=== PATIENT | male | born 1945 | race Caucasian/White ===

== ENCOUNTER 2020-04-23 10:25 | Day surgery (SDC) | payer MEDICARE, SELFPAY ==
--- NOTE | 2020-04-21 12:42 | HO.ANESPROP2 ---
Documented by User: Kellie Dozier 04/21/20 12:45 [facility] Past Medical History Medical History (Updated 04/21/20 @ 12:44 by Kellie Dozier) Atrial fibrillation Diabetes HTN (hypertension) Hyperlipemia Surgical History Surgical History (Updated 04/19/20 @ 15:03 by Lois Aburto) Hx of cholecystectomy Hx of colonoscopy Social History Social History Advance Directives: No Advance Directives Information Provided: No Advance Directives on File: No Meds Allergies Allergy/AdvReac Type Severity Reaction Status Date / Time No Known Allergies Allergy Unverified 04/08/20 14:55 Home Medications Medication Instructions Recorded Confirmed Type Osteo Bi-Flex 04/19/20 History apixaban [Eliquis] 5 mg PO BID 04/19/20 04/23/20 History aspirin 81 mg PO DAILY 04/19/20 04/19/20 History flaxseed oil 1,000 mg PO DAILY 04/19/20 04/19/20 History gemfibrozil 600 mg PO BID 04/19/20 04/19/20 History glipizide 5 mg PO DAILY 04/19/20 04/19/20 History hydrochlorothiazide 1 cap PO DAILY 04/19/20 04/19/20 History latanoprost [Xalatan] 1 drp OPHTHALMIC (EYE) QPM 04/19/20 04/19/20 History metoprolol tartrate 1 tab PO BID 04/19/20 04/23/20 History multivitamin 1 tab PO DAILY 04/19/20 04/19/20 History omeprazole 40 mg PO DAILY 04/19/20 04/19/20 History Exam Exam Date and Time: April 21, 2020 1242 Assessment and Plan Assessment Anesthesia Assessment: Chart Reviewed (04/21/20 ) Documented by User: Ta Cline CRNA 04/23/20 11:07 [facility] Past Medical History Medical History (Updated 04/21/20 @ 12:44 by Kellie Dozier) Atrial fibrillation Diabetes HTN (hypertension) Hyperlipemia Surgical History Surgical History (Updated 04/19/20 @ 15:03 by Lois Aburto) Hx of cholecystectomy Hx of colonoscopy Social History Social History Advance Directives: No Advance Directives Information Provided: No Advance Directives on File: No Meds Allergies Allergy/AdvReac Type Severity Reaction Status Date / Time No Known Allergies Allergy Unverified 04/08/20 14:55 Home Medications Medication Instructions Recorded Confirmed Type Osteo Bi-Flex 04/19/20 History apixaban [Eliquis] 5 mg PO BID 04/19/20 04/23/20 History aspirin 81 mg PO DAILY 04/19/20 04/19/20 History flaxseed oil 1,000 mg PO DAILY 04/19/20 04/19/20 History gemfibrozil 600 mg PO BID 04/19/20 04/19/20 History glipizide 5 mg PO DAILY 04/19/20 04/19/20 History hydrochlorothiazide 1 cap PO DAILY 04/19/20 04/19/20 History latanoprost [Xalatan] 1 drp OPHTHALMIC (EYE) QPM 04/19/20 04/19/20 History metoprolol tartrate 1 tab PO BID 04/19/20 04/23/20 History multivitamin 1 tab PO DAILY 04/19/20 04/19/20 History omeprazole 40 mg PO DAILY 04/19/20 04/19/20 History Assessment and Plan Final Anesthetic Review NPO: Yes ASA Class: III Anesthetic Plan Anesthetic Plan: MAC: Documented by User: Vi Delong 04/23/20 11:21 [facility] Past Medical History Medical History (Updated 04/21/20 @ 12:44 by Kellie Dozier) Atrial fibrillation Diabetes HTN (hypertension) Hyperlipemia Family History Family history of problems with anesthesia: No Surgical History Surgical History (Updated 04/19/20 @ 15:03 by Lois Aburto) Hx of cholecystectomy Hx of colonoscopy History of Problems with Anesthesia: No Social History Social History Advance Directives: No Advance Directives Information Provided: No Advance Directives on File: No Meds Allergies Allergy/AdvReac Type Severity Reaction Status Date / Time No Known Allergies Allergy Unverified 04/08/20 14:55 Home Medications Medication Instructions Recorded Confirmed Type Osteo Bi-Flex 04/19/20 History apixaban [Eliquis] 5 mg PO BID 04/19/20 04/23/20 History aspirin 81 mg PO DAILY 04/19/20 04/19/20 History flaxseed oil 1,000 mg PO DAILY 04/19/20 04/19/20 History gemfibrozil 600 mg PO BID 04/19/20 04/19/20 History glipizide 5 mg PO DAILY 04/19/20 04/19/20 History hydrochlorothiazide 1 cap PO DAILY 04/19/20 04/19/20 History latanoprost [Xalatan] 1 drp OPHTHALMIC (EYE) QPM 04/19/20 04/19/20 History metoprolol tartrate 1 tab PO BID 04/19/20 04/23/20 History multivitamin 1 tab PO DAILY 04/19/20 04/19/20 History omeprazole 40 mg PO DAILY 04/19/20 04/19/20 History Exam Exam Date and Time: Vital Signs Temp Pulse Resp BP Pulse Ox 04/23/20 10:44 98 F 108 H 18 135/94 H 97 Airway Mallampati Class: II TM Dist: >3cm Neck ROM: Full Partial: Upper Heart: RRR Lungs: CTAB Assessment and Plan Assessment Anesthesia Assessment: Anesthesia Plan Discussed, Consent Obtained and Chart Reviewed Final Anesthetic Review NPO: Yes Intake Type: Clears Intake Timing: Greater than 8 hours and Solids Intake Timing: Greater than 8 hours ASA Class: III Final Preanesthetic Review: No Changes in Pt Med Stat, Meds & Allergies Reviewed, Consent Obtained/Reviewed, Med/Surg/Anes Hx Reviewed and Anes Risks/Benef Reviewed Patient Risk: Intermediate Procedure Risk: Low Anesthetic Plan Anesthetic Plan: MAC: Disposition: Standard PACU
[2020-04-23 10:32] VITALS: BMI 31.0
[2020-04-23 10:44] VITALS: BP 135/94; PULSE 108; RESP 18; TEMP 36.6; O2SAT 97
[2020-04-23 10:52] LABS: Glucose, Whole Blood 214 mg/dL (60-115)
[2020-04-23] MEDS: Lactated Ringers 1,000 ML 100 ML IVCONT (11:12)
[2020-04-23 12:00] VITALS: BP 99/72; PULSE 89; RESP 16; TEMP 36.8; O2SAT 98
[2020-04-23 12:14] VITALS: BP 105/76; PULSE 98; RESP 18; TEMP 36.6; O2SAT 96
--- NOTE | 2020-04-23 12:43 | HO.POSTANES ---
Post Anesthesia Evaluation Post Anesthesia Evaluation Vital Signs: Vital Signs Temp Pulse Resp BP Pulse Ox 04/23/20 12:14 98 F 98 18 105/76 96 04/23/20 12:00 98.3 F 89 16 99/72 98 04/23/20 10:44 98 F 108 H 18 135/94 H 97 Anesthesia: Monitored Mental Status: Awake Pain Control: Satisfactory Nausea/Vomiting: None Hydration: Adequate Anesthesia-Related Issues: No Anes. Related Issues
--- NOTE | 2020-04-23 12:49 | OP_ITS ---
SURGEON: Mesfin Castro MD INDICATIONS: Colon cancer screening. PREOPERATIVE DIAGNOSIS: POSTOPERATIVE DIAGNOSIS: PROCEDURE PERFORMED: Colonoscopy to the terminal ileum with snare polypectomy. ESTIMATED BLOOD LOSS: COMPLICATIONS: ANESTHESIA: Monitored anesthesia care. ASSISTANTS: SPECIMENS: DESCRIPTION OF PROCEDURE: History and physical performed. The risks and benefits of the procedure explained to the patient and informed consent was obtained. The patient was placed in left lateral decubitus position. A digital rectal exam was performed and was found to be normal. The Olympus pediatric video colonoscope was introduced into the rectum and advanced to the cecum without difficulty. The cecum was identified by transillumination, palpation, and identification of ileocecal valve. Examination was performed. The scope was removed. He tolerated the procedure well and was taken to the recovery in stable condition. FINDINGS: The terminal ileum was examined and appeared normal. The visualized colonic mucosa was normal. The quality of the prep was good except in the rectum where there was formed stool. This limited the sensitivity examination for detection of small polyps. There were multiple polyps found, all were under 10 mm and removed with a snare. The 1st was located at 80, two were located at 70, three at 60, and one at 50 cm from the anal verge. Retroflexed examination showed internal hemorrhoids. There was moderate sigmoid diverticulosis. IMPRESSION: Colon polyps. RECOMMENDATION: Follow up biopsy results. MD ZULLY Colunga/PACO / [id number]
--- NOTE | 2020-04-23 13:31 | HO.POSTANES ---
Documented by User: Kellie Dozier 04/23/20 13:31 Post Anesthesia Evaluation Post Anesthesia Evaluation Vital Signs: Vital Signs Temp Pulse Resp BP Pulse Ox 04/23/20 12:14 98 F 98 18 105/76 96 04/23/20 12:00 98.3 F 89 16 99/72 98 04/23/20 10:44 98 F 108 H 18 135/94 H 97 Anesthesia: Monitored Mental Status: Awake Pain Control: Satisfactory Nausea/Vomiting: None Hydration: Adequate Anesthesia-Related Issues: No Anes. Related Issues
== END 2020-04-23 13:15 | disposition home or self-care (01) ==
PROVIDERS: PCP Internal Medicine; Visit Provider Internal Medicine Gastroenterology
PROC: 0DJD8ZZ Inspection of Lower Intestinal Tract, Via Natural or Artificial Opening Endoscopic (ICD-10-PCS; CPT 45378; principal; 2020-04-23 11:30)
DX: Z12.11 Encounter for screening for malignant neoplasm of colon (principal); D12.4 Benign neoplasm of descending colon; D12.5 Benign neoplasm of sigmoid colon; Z90.49 Acquired absence of other specified parts of digestive tract; I48.91 Unspecified atrial fibrillation; Z79.01 Long term (current) use of anticoagulants; I10 Essential (primary) hypertension; E78.5 Hyperlipidemia, unspecified; E11.9 Type 2 diabetes mellitus without complications; Z79.82 Long term (current) use of aspirin; Z79.84 Long term (current) use of oral hypoglycemic drugs
CPT/HCPCS: 45385; 82947; 88305

== ENCOUNTER 2020-06-14 10:12 | Outpatient (REF) | payer MEDICARE, SELFPAY ==
[2020-06-14 14:06] LABS: Estimated Average Glucose 206 mg/dL; Hemoglobin A1c % 8.8 %
[2020-06-14 14:10] LABS: Anion Gap 15 (12-20); Blood Urea Nitrogen 23 mg/dL (9-16); Calcium 9.6 mg/dL (8.4-10.2); Carbon Dioxide 26 mmol/L (22-29); Chloride 102 mmol/L (96-108); Estimated Glomerular Filt Rate > 60; Glucose Random 186 mg/dL (60-115); Sodium 138 mmol/L (135-145)
== END 2020-06-14 10:13 | disposition home or self-care (01) ==
LOC: HO.10HDL 10:12
PROVIDERS: Visit Provider Internal Medicine
DX: E11.9 Type 2 diabetes mellitus without complications (principal); I10 Essential (primary) hypertension
CPT/HCPCS: 80048; 83036

== ENCOUNTER 2020-12-08 07:39 | Outpatient (REF) | payer MEDICARE, SELFPAY ==
[2020-12-08 11:34] LABS: Creatinine Urine 99.04 mg/dL; Microalbum/Creatinine Ratio Ur 39.3 ug/mg cr
[2020-12-08 11:44] LABS: Alanine Aminotransferase 29 U/L (0-40); Albumin Level 4.4 g/dL (3.5-5.0); Alkaline Phosphatase 61 U/L (39-117); Anion Gap 16 (12-20); Aspartate Amino Transferase 23 U/L (5-37); Bilirubin Total 0.9 mg/dL (0.0-1.0); Blood Urea Nitrogen 22 mg/dL (9-16); Calcium 9.8 mg/dL (8.4-10.2); Carbon Dioxide 26 mmol/L (22-29); Chloride 101 mmol/L (96-108); Estimated Glomerular Filt Rate > 60; Glucose Random 191 mg/dL (60-115); Potassium 4.8 mmol/L (3.3-5.1); Sodium 138 mmol/L (135-145); Total Protein 6.7 g/dL (6.5-8.0)
[2020-12-08 11:45] LABS: Estimated Average Glucose 209 mg/dL; Hemoglobin A1c % 8.9 %
[2020-12-08 12:24] LABS: Prostate Specific Antigen 1.91 ng/mL (<0.05-4.0)
== END 2020-12-08 07:40 | disposition home or self-care (01) ==
LOC: HO.10HDL 07:39
PROVIDERS: Visit Provider Internal Medicine
DX: E11.9 Type 2 diabetes mellitus without complications (principal); I48.91 Unspecified atrial fibrillation; I10 Essential (primary) hypertension; Z12.5 Encounter for screening for malignant neoplasm of prostate
CPT/HCPCS: 36415; 80053; 82043; 83036; 84153

== ENCOUNTER → 2021-01-05 08:43 | Outpatient (BNVA) | payer MEDICARE, SELFPAY | PROVIDERS: PCP Internal Medicine; Referring Provider Internal Medicine; Visit Provider Internal Medicine Cardiovascular Disease | DX: I48.20 Chronic atrial fibrillation, unspecified (principal); I10 Essential (primary) hypertension | CPT/HCPCS: 93005; 99202 ==

== ENCOUNTER → 2021-01-25 12:57 | Outpatient (REF) | payer MEDICARE, SELFPAY ==
--- NOTE | 2021-01-25 13:00 | CA_ITS ---
Transthoracic Echocardiogram Patient (Last, First, Middle): Richy Vasquez C Gender: Male Date of : 1945 Age: 75 Procedure Date: 01/25/2021 Procedure Type: Transthoracic Echocardiogram Location: OP Height: 172.72 cm Weight: 95.26 kg BSA: 2.09 m2 Heart Rate: bpm BP: 132 / 80 mmHg Head Of Sales And Marketing: Referring MD: Kraig Newsome MD Symptoms: I48.20 - Chronic atrial fibrillation, unspecified Study Quality: Fair ECG Rhythm: Atrial Fibrillation Conclusions: - The left ventricular systolic function is normal. The visually estimated ejection fraction is between 55-60%. - The basal inferior and basal inferolateral segments are hypokinetic. - No obvious valvular pathology seen on this study. Findings Left Ventricle Normal left ventricular cavity size. There is mildly increased left ventricular wall thickness. The left ventricular systolic function is normal. The visually estimated ejection fraction is between 55-60%. There is evidence of regional wall motion abnormalities. Diastolic function is indeterminate on the basis of available data. Wall Motion Rest Echo Findings The basal inferior and basal inferolateral segments are hypokinetic. Right Ventricle Normal right ventricular cavity size and systolic function. Atria The left atrium is mildly dilated. The right atrium is normal in size. Aortic Valve There is a normal trileaflet aortic valve. There is no aortic valve stenosis. There is no aortic valve regurgitation. Mitral Valve The mitral valve appears normal. There is trace mitral valve regurgitation. There is no mitral valve stenosis. Pulmonic Valve The pulmonic valve was not well visualized. There is trace pulmonic valve regurgitation. Tricuspid Valve Normal tricuspid valve structure. There is mild tricuspid valve regurgitation. The pulmonary artery systolic pressure is normal. Great Vessels The aortic annulus, sinuses of valsalva, and asc aorta are normal in size. Venous The inferior vena cava is normal in size and collapses greater than 50% with inspiration. Pericardium/Pleural There is no evidence of pericardial effusion. Prior Study Comparison Changes noted compared to prior study dated: 10/16/2003. Prior study reports possible infero-apical hypokinesis. See comments in current study. Recommendations, Care & Conclusions No obvious valvular pathology seen on this study. Measurements 2D Linear Measurements IVSd: 1.50 0.6-0.9/0.6-1.0 cm LVIDd: 4.06 3.9-5.3/4.2-5.9 cm LVIDd Index: 1.94 2.4-3.2/2.2-3.1 cm/m2 LVIDs: 2.95 2.0-3.6 cm LVPWd: 1.34 0.7-1.1 cm Ao Root: 3.50 2.1-3.5 cm LA Diam: 4.40 2.7-3.8/3.0-4.0 cm LAIDs Index: 2.11 1.5-2.3 cm/m2 LV Mass: 272.05 67-162/88-224 g LV Mass Index: 130.17 43-95/49-115 g/m2 LVOT Diam: 2.50 3.0+(-)1.3 cm 2D Systolic Function EF 4C: 61.60 >55% EF 2C: 39.40 >55% EF BiP: 50.30 >55% Mitral Valve MV Pk E: 0.90 MV Decel Time: 211.00 E'Lateral: 14.00 E'Medial: 6.96 E/E' Med: 13.00 E/E' Lat: 6.50 PHT: 62.00 MVA PHT: 3.55 Decel [place]: 4.29 Aortic Valve AoV Pk Gaurav: 1.03 AoV Mn Gaurav: 0.72 AoV VTI: 0.26 AoV Pk Grad: 4.00 Aov Mn Grad: 2.00 BANG Cont.VTI: 2.86 LVOT LVOT Pk Gaurav: 0.67 LVOT Mn Gaurav: 0.43 LVOT VTI: 0.15 LVOT Pk Grad: 2.00 LVOT Mn Grad: 1.00 LVOT Diam: 2.50 LVOT Area: 4.91 Diastolic Function MV Pk E: 0.90 E'Medial: 6.96 E/E' Med: 13.00 E' Laterial: 14.00 E/E' Lat: 6.50 Tricuspid Valve TR Pk Gaurav: 2.42 TR Pk Grad: 23.00 RA Press: 3.00 RVSP: 26.00 Great Vessels Aorta Ao Root-2D: 3.50 2.0-3.7 cm Ao Asc: 3.70 2.1-3.4 cm Pulmonary Valve PV Pk Gaurav: 0.81 Peak PV Grad: 3.00 Updated in Other Vendor System with Status of Final Marcello Castrejon MD electronically signed on 01/26/2021 10:40:07 AM with status of Final
--- NOTE | 2021-01-25 13:30 | ECG_ITS ---
Hook-up date: 2021-01-25 14:12:00 Duration: 25:29:00 Test Indications: CHRONIC AFIB, PVC'S Medications: 296821 QRS complexes 1077 Ventricular ectopics which represent <1 % of total QRS comp. * Supraventricular ectopics which represent % of total QRS comp. * Paced QRS complexs which represent % of total QRS comp. VENTRICULAR ECTOPY 1041 Isolated 3 Bigeminal Cycles 16 Couplets 1 Runs 4 Beats in Runs 4 Beats LONGEST at 128 BPM at 05:57:41 2021-01-26 4 Beats FASTEST at 128 BPM at 05:57:41 2021-01-26 SUPRAVENTRICULAR ECTOPY * Isolated * Couplets * Runs * Beats in Runs * Beats LONGEST at * BPM at :: -- * Beats FASTEST at * BPM at :: -- HEART RATES 56 MIN at 03:31:37 2021-01-26 88 AVG 167 MAX at 18:26:24 2021-01-25 LONGEST RR 1.7920 secs at 08:03:56 2021-01-26 S-T LEVELS Channel 1 - 128 mm at 14:12:00 2021-01-25 - 128 mm at 14:12:00 2021-01-25 Channel 2 - 128 mm at 14:12:00 2021-01-25 - 128 mm at 14:12:00 2021-01-25 Channel 3 - 128 mm at 03:33:11 -- - 128 mm at 03:33:11 Basic rhythm Atrial fibrillation No long pause or profound bradycardia Overall adequate rate control with average HR of 88 bpm Frequent Premature ventricular complexes Patient did not report any symptoms in the diary Referred By: Kraig Newosme Overread By: KRAIG NEWSOME MD
== END ==
LOC: HO.CARD 12:57
PROVIDERS: PCP Internal Medicine; Visit Provider Internal Medicine Cardiovascular Disease
DX: I48.20 Chronic atrial fibrillation, unspecified (principal); I49.3 Ventricular premature depolarization
CPT/HCPCS: 93225; 93226; 93306

== ENCOUNTER → 2021-02-09 10:18 | Outpatient (REF) | payer MEDICARE, SELFPAY ==
--- NOTE | ~2021-02-09 | NM_ITS ---
Myocardial perfusion study Indication: Abnormal echocardiogram to evaluate for myocardial ischemia Technique: The patient was brought in for a Lexiscan perfusion study on 02/09/2021. Patient performed low-level exercise and was injected 0.4 mg of Lexiscan intravenously. Within a minute of injection, 30 mCi of sestamibi was given intravenously. Images were obtained using the SPECT gamma camera interlaced with the gating device. Images were obtained in supine position. Resting perfusion study was performed on 02/10/2021. Patient was administered 30 mCi of sestamibi intravenously at rest. Images were then obtained in supine position. Images obtained with and without CT attenuation. Total DLP 132 mGy-cm. Images were processed with the software and compared side to side in short axis, horizontal long axis and vertical long axis views. Findings: The stress perfusion study showed nonattenuated images show mildly reduced uptake in the inferior wall of the LV myocardium of the LV myocardium. Remainder of the LV myocardium is normally perfused. Attenuation corrected images show mildly reduced uptake in the apex of the LV myocardium otherwise normal uptake in remainder of the LV myocardium.. The gated study shows normal LV systolic function with calculated LVEF of 63%. LV cavity is normal in size. The gated study shows normal systolic wall thickening and contraction of segments. Resting study shows no change in perfusion pattern except for mild to moderate uptake in the basal lateral wall, most likely soft tissue attenuation. Gating at rest reveals normal cyst colic wall motion with ejection fraction at 58%. The findings are consistent with normal myocardial perfusion. NM/NM david perf SPECT rest & str Impression: 1. Myocardial perfusion imaging study shows normal myocardial perfusion 2. Gated LVEF is 63% 3. Transient ischemic dilatation not present EKG is nondiagnostic for ischemia
--- NOTE | 2021-02-09 10:21 | CA_ITS ---
Acquisition Time: 2021-02-09 10:34:34 Total Exercise Time: 00:02:00 Test Indications: ARRHYTHMIA Medications: Protocol: LEXISCAN Max HR: 120 BPM 82% of Pred: 145 BPM Max BP: 134/080 mmHG Max Work Load: 1.0 METS Pharmacological stress test with lexiscan injection, while sitting and kicking his legs, without anginal symptoms, with isolated PVCs, with normotensive response to injection, with nondiagnostic EKG for ischemia. Nuclear images pending. Test reviewed with Dr Newsome. Referred By: Kraig Newsome Overread By: AYE HUGHES
== END ==
LOC: HO.CARD 10:18
PROVIDERS: PCP Internal Medicine; Visit Provider Nurse Practitioner Family
DX: R93.1 Abnormal findings on diagnostic imaging of heart and coronary circulation (principal)
CPT/HCPCS: 78452; 93017; J0280; J2785

== ENCOUNTER → 2021-02-17 11:49 | Outpatient (BNVA) | payer MEDICARE, SELFPAY | PROVIDERS: PCP Internal Medicine; Visit Provider Internal Medicine Cardiovascular Disease | CPT/HCPCS: Q3014 ==

== ENCOUNTER 2021-03-18 07:40 | Outpatient (REF) | payer MEDICARE, SELFPAY ==
[2021-03-18 08:33] LABS: Estimated Average Glucose 197 mg/dL; Hemoglobin A1c % 8.5 %
[2021-03-18 08:51] LABS: Anion Gap 13 (12-20); Blood Urea Nitrogen 19 mg/dL (9-16); Calcium 9.9 mg/dL (8.4-10.2); Carbon Dioxide 26 mmol/L (22-29); Chloride 106 mmol/L (96-108); Cholesterol 172 mg/dL; Estimated Glomerular Filt Rate > 60; Glucose Fasting 172 mg/dL (60-99); HDL Cholesterol 33 mg/dL; LDL Cholesterol Calculated 105 mg/dl; Potassium 4.6 mmol/L (3.3-5.1); Sodium 140 mmol/L (135-145); Triglycerides 172 mg/dL
== END 2021-03-18 07:41 | disposition home or self-care (01) ==
LOC: HO.LAB 07:40
PROVIDERS: PCP Internal Medicine; Visit Provider Internal Medicine
DX: E11.9 Type 2 diabetes mellitus without complications (principal); I48.91 Unspecified atrial fibrillation; I10 Essential (primary) hypertension; E78.00 Pure hypercholesterolemia, unspecified; N40.0 Benign prostatic hyperplasia without lower urinary tract symptoms
CPT/HCPCS: 36415; 80048; 80061; 83036

== ENCOUNTER 2021-05-26 08:29 | Outpatient (REF) | payer MEDICARE, SELFPAY ==
[2021-05-26 10:36] LABS: MANUAL DIFF FLAG NO
[2021-05-26 10:41] LABS: Basophils Percent Auto 0.3 % (0-2); Eosinophils Absolute Auto 0.1 X10*3/uL (0.0-0.4); Eosinophils Percent Auto 2.2 % (0-4); Hematocrit 37.9 % (42.0-52.0); Hemoglobin 12.8 g/dl (14.0-18.0); Imm Gran Abs Auto 0.04 X10*3/uL (0.00-0.03); Imm Gran Pct Auto 0.6 % (0.0-0.4); Lymphocytes Absolute Auto 1.2 X10*3/uL (1.2-4.9); Lymphocytes Percent Auto 18.5 % (20-40); Mean Corpuscular HGB Conc 33.8 g/dl (31.0-36.0); Mean Corpuscular Hemoglobin 29.9 pg (27.0-33.0); Mean Corpuscular Volume 88.6 fL (80.0-98.0); Mean Platelet Volume 9.9 fL (9.4-12.4); Monocytes Absolute Auto 0.7 X10*3/uL (0.1-1.2); Monocytes Percent Auto 10.2 % (2-11); Neutrophils Absolute Auto 4.34 x10*3/uL (2.0-8.3); Neutrophils Percent Auto 68.2 % (45-73); Platelet Count 243 X10*3/uL (160-400); Red Blood Count 4.28 X10*6/uL (4.60-5.80); White Blood Count 6.4 X10*3/uL (4.8-10.8)
[2021-05-26 10:59] LABS: Estimated Average Glucose 229 mg/dL; Hemoglobin A1c % 9.6 %
[2021-05-26 11:01] LABS: Alanine Aminotransferase 26 U/L (0-40); Albumin Level 4.3 g/dL (3.5-5.0); Alkaline Phosphatase 64 U/L (39-117); Anion Gap 14 (12-20); Aspartate Amino Transferase 22 U/L (5-37); Bilirubin Total 0.6 mg/dL (0.0-1.0); Blood Urea Nitrogen 25 mg/dL (9-16); Calcium 9.1 mg/dL (8.4-10.2); Carbon Dioxide 26 mmol/L (22-29); Chloride 103 mmol/L (96-108); Cholesterol 202 mg/dL; Estimated Glomerular Filt Rate > 60; Glucose Fasting 269 mg/dL (60-99); HDL Cholesterol 30 mg/dL; LDL Cholesterol Calculated 122 mg/dl; Potassium 3.9 mmol/L (3.3-5.1); Sodium 139 mmol/L (135-145); Total Protein 6.5 g/dL (6.5-8.0); Triglycerides 251 mg/dL
[2021-05-26 11:19] LABS: Creatinine Urine 127.42 mg/dL; Microalbum/Creatinine Ratio Ur 28.2 ug/mg cr
== END 2021-05-26 08:30 | disposition home or self-care (01) ==
LOC: HO.10HDL 08:29
PROVIDERS: Visit Provider Internal Medicine
DX: E11.9 Type 2 diabetes mellitus without complications (principal); I10 Essential (primary) hypertension; E78.5 Hyperlipidemia, unspecified
CPT/HCPCS: 36415; 80053; 80061; 82043; 83036; 85025

== ENCOUNTER 2021-12-07 08:47 | Outpatient (REF) | payer MEDICARE, SELFPAY ==
[2021-12-07 10:53] LABS: Estimated Average Glucose 232 mg/dL; Hemoglobin A1c % 9.7 %
[2021-12-07 11:10] LABS: Alanine Aminotransferase 25 U/L (0-40); Albumin Level 4.1 g/dL (3.5-5.0); Alkaline Phosphatase 55 U/L (39-117); Anion Gap 15 (12-20); Aspartate Amino Transferase 20 U/L (5-37); Bilirubin Total 0.8 mg/dL (0.0-1.0); Blood Urea Nitrogen 22 mg/dL (9-16); Calcium 9.7 mg/dL (8.4-10.2); Carbon Dioxide 23 mmol/L (22-29); Chloride 104 mmol/L (96-108); Estimated Glomerular Filt Rate > 60; Glucose Random 232 mg/dL (60-115); Potassium 4.2 mmol/L (3.3-5.1); Sodium 138 mmol/L (135-145); Total Protein 6.6 g/dL (6.5-8.0)
== END 2021-12-07 08:48 | disposition home or self-care (01) ==
LOC: HO.10HDL 08:47
PROVIDERS: Visit Provider Internal Medicine
DX: E11.9 Type 2 diabetes mellitus without complications (principal); I48.91 Unspecified atrial fibrillation; I10 Essential (primary) hypertension
CPT/HCPCS: 36415; 80053; 83036

== ENCOUNTER → 2022-02-16 10:10 | Outpatient (BNVA) | payer MEDICARE, SELFPAY | PROVIDERS: PCP Internal Medicine; Referring Provider Internal Medicine; Visit Provider Internal Medicine Cardiovascular Disease | DX: I48.20 Chronic atrial fibrillation, unspecified (principal); I10 Essential (primary) hypertension | CPT/HCPCS: 93005; 99212 ==

== ENCOUNTER 2022-03-06 07:54 | Outpatient (REF) | payer MEDICARE, SELFPAY ==
[2022-03-06 10:48] LABS: MANUAL DIFF FLAG NO
[2022-03-06 10:51] LABS: Basophils Percent Auto 0.3 % (0-2); Eosinophils Absolute Auto 0.1 X10*3/uL (0.0-0.4); Eosinophils Percent Auto 1.7 % (0-4); Hematocrit 37.8 % (42.0-52.0); Hemoglobin 12.9 g/dl (14.0-18.0); Imm Gran Abs Auto 0.06 X10*3/uL (0.00-0.03); Imm Gran Pct Auto 0.9 % (0.0-0.4); Lymphocytes Absolute Auto 1.3 X10*3/uL (1.2-4.9); Lymphocytes Percent Auto 18.6 % (20-40); Mean Corpuscular HGB Conc 34.1 g/dl (31.0-36.0); Mean Corpuscular Hemoglobin 30.4 pg (27.0-33.0); Mean Corpuscular Volume 89.2 fL (80.0-98.0); Mean Platelet Volume 10.7 fL (9.4-12.4); Monocytes Absolute Auto 0.6 X10*3/uL (0.1-1.2); Monocytes Percent Auto 8.7 % (2-11); Neutrophils Absolute Auto 4.9 x10*3/uL (2.0-8.3); Neutrophils Percent Auto 69.8 % (45-73); Platelet Count 278 X10*3/uL (160-400); Red Blood Count 4.24 X10*6/uL (4.60-5.80); Red Cell Distribution Width 12.7 % (11.0-16.0)
[2022-03-06 11:00] LABS: Estimated Average Glucose 197 mg/dL; Hemoglobin A1c % 8.5 %
[2022-03-06 11:17] LABS: Alanine Aminotransferase 14 U/L (0-40); Albumin Level 4.2 g/dL (3.5-5.0); Alkaline Phosphatase 55 U/L (39-117); Anion Gap 16 (12-20); Aspartate Amino Transferase 16 U/L (5-37); Bilirubin Total 0.8 mg/dL (0.0-1.0); Blood Urea Nitrogen 17 mg/dL (9-16); Calcium 9.3 mg/dL (8.4-10.2); Carbon Dioxide 25 mmol/L (22-29); Chloride 104 mmol/L (96-108); Cholesterol 173 mg/dL; Estimated Glomerular Filt Rate > 60; Glucose Fasting 164 mg/dL (60-99); HDL Cholesterol 33 mg/dL; LDL Cholesterol Calculated 101 mg/dl; Potassium 4.2 mmol/L (3.3-5.1); Sodium 141 mmol/L (135-145); Total Protein 6.7 g/dL (6.5-8.0); Triglycerides 199 mg/dL
[2022-03-06 11:34] LABS: Creatinine Urine 79.13 mg/dL; Microalbum/Creatinine Ratio Ur 32.8 ug/mg cr
[2022-03-06 11:44] LABS: Prostate Specific Antigen 1.94 ng/mL (<0.05-4.0)
== END 2022-03-06 07:55 | disposition home or self-care (01) ==
LOC: HO.10HDL 07:54
PROVIDERS: Visit Provider Internal Medicine
DX: Z12.5 Encounter for screening for malignant neoplasm of prostate (principal); E11.9 Type 2 diabetes mellitus without complications; I10 Essential (primary) hypertension; N40.0 Benign prostatic hyperplasia without lower urinary tract symptoms; E78.5 Hyperlipidemia, unspecified
CPT/HCPCS: 36415; 80053; 80061; 82043; 83036; 84153; 85025

== ENCOUNTER 2022-05-30 07:21 | Outpatient (REF) | payer MEDICARE, SELFPAY ==
--- NOTE | ~2022-05-30 | MR_ITS ---
EXAMINATION: MR LUMBAR SPINE WITHOUT CONTRAST CLINICAL INFORMATION: Right lower extremity numbness and weakness. COMPARISON: No relevant prior imaging. TECHNIQUE: MRI of the lumbar spine was obtained using routine sequences without contrast. FINDINGS: There is grade 1 retrolisthesis of L4 on L5. Alignment is otherwise normal. Vertebral heights are preserved. No acute bone marrow signal changes. There is loss of intervertebral disc height and T2 signal intensity at multiple levels related to disc degeneration. The tip of the conus medullaris is located at L1. No mass effect on the conus. Visualized distal cord signal intensity is normal. At L1-L2 there is a slightly bulging disc. No canal stenosis. No mass effect on the traversing or foraminal nerve roots. At L2-L3 there is a slightly bulging disc and bilateral facet degenerative change. No canal stenosis. No mass effect the traversing or foraminal nerve roots. At L3-L4 there is a slightly bulging disc. Bilateral facet degenerative change. No canal stenosis. No mass effect on the traversing or foraminal nerve roots. At L4-L5 there is a broad right subarticular extrusion superimposed upon a bulging disc with 0.9 cm caudal subligamentous extension of extruded disc material causing mild canal stenosis and asymmetric compression of the right traversing L5 nerve roots. There is also moderate compression of the right L4 foraminal nerve root. At L5-S1 there is an asymmetrically bulging disc to the left. Bilateral facet degenerative change. No canal stenosis. Asymmetric narrowing of the left subarticular zone causes abutment of left traversing S1 nerve roots. Mild to moderate mass effect on the left L5 foraminal nerve root. Limited visualization the retroperitoneal anatomy reveals no abnormal finding. Psoas and paraspinal muscle groups are symmetric. 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 There is a broad right subarticular extrusion at L4-L5 causing mild canal stenosis and asymmetric compression of the right traversing L5 nerve roots. There is also moderate compression of the right L4 foraminal nerve root at this level.
== END 2022-05-30 07:22 | disposition home or self-care (01) ==
LOC: HO.MRI 07:21
PROVIDERS: Visit Provider Internal Medicine
DX: M54.50 Low back pain, unspecified (principal)
CPT/HCPCS: 72148

== ENCOUNTER 2022-07-06 11:00 | Outpatient (REF) | payer MEDICARE, SELFPAY ==
[2022-07-06 13:40] LABS: MANUAL DIFF FLAG NO
[2022-07-06 13:42] LABS: Basophils Percent Auto 0.3 % (0-2); Eosinophils Absolute Auto 0.1 X10*3/uL (0.0-0.4); Eosinophils Percent Auto 1.4 % (0-4); Hematocrit 38.9 % (42.0-52.0); Hemoglobin 12.7 g/dl (14.0-18.0); Imm Gran Abs Auto 0.06 X10*3/uL (0.00-0.03); Imm Gran Pct Auto 0.9 % (0.0-0.4); Lymphocytes Absolute Auto 0.8 X10*3/uL (1.2-4.9); Lymphocytes Percent Auto 12.7 % (20-40); Mean Corpuscular HGB Conc 32.6 g/dl (31.0-36.0); Mean Corpuscular Hemoglobin 28.9 pg (27.0-33.0); Mean Corpuscular Volume 88.6 fL (80.0-98.0); Mean Platelet Volume 10.2 fL (9.4-12.4); Monocytes Absolute Auto 0.7 X10*3/uL (0.1-1.2); Neutrophils Absolute Auto 4.8 x10*3/uL (2.0-8.3); Neutrophils Percent Auto 74.7 % (45-73); Platelet Count 258 X10*3/uL (160-400); Red Blood Count 4.39 X10*6/uL (4.60-5.80); Red Cell Distribution Width 12.8 % (11.0-16.0); White Blood Count 6.5 X10*3/uL (4.8-10.8)
[2022-07-06 14:17] LABS: Estimated Average Glucose 194 mg/dL; Hemoglobin A1c % 8.4 %
[2022-07-06 14:50] LABS: Alanine Aminotransferase 18 U/L (0-40); Albumin Level 4.3 g/dL (3.5-5.0); Alkaline Phosphatase 70 U/L (39-117); Anion Gap 15 (12-20); Aspartate Amino Transferase 18 U/L (5-37); Bilirubin Total 0.7 mg/dL (0.0-1.0); Blood Urea Nitrogen 21 mg/dL (9-16); Calcium 9.5 mg/dL (8.4-10.2); Carbon Dioxide 25 mmol/L (22-29); Chloride 102 mmol/L (96-108); Estimated Glomerular Filt Rate > 60; Glucose Random 237 mg/dL (60-115); Potassium 4.1 mmol/L (3.3-5.1); Sodium 138 mmol/L (135-145); Total Protein 6.8 g/dL (6.5-8.0)
== END 2022-07-06 11:01 | disposition home or self-care (01) ==
LOC: HO.10HDL 11:00
PROVIDERS: Visit Provider Internal Medicine
DX: I48.91 Unspecified atrial fibrillation (principal); I10 Essential (primary) hypertension; E11.9 Type 2 diabetes mellitus without complications
CPT/HCPCS: 36415; 80053; 83036; 85025

== ENCOUNTER 2022-08-07 18:54 | Emergency (ER) | payer MEDICARE, SELFPAY ==
--- NOTE | ~2022-08-07 | CT_ITS ---
EXAMINATION: CT ANGIOGRAM HEAD CT ANGIOGRAM NECK CLINICAL INFORMATION: Reason for Exam ams no focal deficit at fib COMPARISON: Earlier same day noncontrast head CT TECHNIQUE: Initial noncontrast stump shooter imaging of the head and neck was performed. Comparison is made with noncontrast head CT from earlier today. Test bolus sequences followed by intravenous administration 70 mL of Omnipaque 350. Helical imaging was performed in the axial plane from the aortic arch to the skull vertex. Delayed postcontrast imaging of the head was also performed. The data was processed at the cytotechnologist supervisor's workstation for generation of MIP sequences. Angled MIPs and volume rendered reformatted images were also generated at an offline 3D workstation. Stenoses are assessed in accordance with NASCET criteria unless otherwise indicated. DLP: 1530 mGy-cm This CT examination was performed using dose optimization techniques as appropriate, variously including the following: *Automated exposure control. *Adjustment of mA and/or kV according to patient size (this includes techniques or standardized protocols for targeted exams where dose is matched to indication/reason for exam; i.e. extremities or head). *Use of iterative reconstruction technique. FINDINGS: CT Head: There is no evidence of acute intracranial hemorrhage or edematous territorial infarction. There is no abnormal attenuation within the brain parenchyma. Melissa-white matter differentiation is preserved. The ventricles are normal in size and configuration. No evidence for obstructive hydrocephalus. No abnormal mass effect or midline shift. No extra-axial fluid collections. No pathologic intra-axial enhancement or regional oligemia. No acute soft tissue or osseous abnormalities. The mastoid air cells and paranasal sinuses are clear. CT Neck: The thyroid gland and remaining cervical soft tissues are within normal limits. Moderate to advanced multilevel cervical spondylosis. CT Upper Chest: The visualized lung apices and upper mediastinum are within normal limits. Neck CTA: Aortic Arch: Normal contour and caliber. Classic 3 vessel branching pattern of the aortic arch. Great Vessel Origins: Calcified atherosclerotic disease without significant stenosis of the branch origins. Right Common Carotid Artery: No focal stenosis or occlusion. Cervical Right Internal Carotid Artery: Calcific atherosclerotic disease of the carotid bulb and proximal internal carotid artery causing less than 50% stenosis. Left Common Carotid Artery: No focal stenosis or occlusion. Cervical Left Internal Carotid Artery: Calcific atherosclerotic disease of the proximal internal carotid artery causing less than 50% stenosis. Cervical Right Vertebral Artery: The right cervical vertebral artery is occluded from its origin with reconstitution of the distal V2 segment which appears congenitally diminutive. Cervical Left Vertebral Artery: Dominant. No focal stenosis or occlusion. Brain CTA: Intracranial Internal Carotid Arteries: Calcific atherosclerotic disease of the intracranial internal carotid arteries without occlusion or flow-limiting stenosis. Right Anterior Cerebral Artery: Normal A1 segment. Normal opacification of the distal ABNER segments. Left Anterior Cerebral Artery: Normal A1 segment. Normal opacification of the distal ABNER segments. Anterior Communicating Artery: Normal. Right Middle Cerebral Artery: Normal M1 segment of the MCA without focal stenosis or occlusion. Normal arborization of the distal segments. Left Middle Cerebral Artery: Normal M1 segment of the MCA without focal stenosis or occlusion. There is occlusion of the inferior division of the left middle cerebral artery at its origin with corresponding hyperdense MCA on preceding noncontrast head CT (series 2 image 24 on the prior exam). Right Vertebral Artery: Diffusely diminutive and patent Left Vertebral Artery: Normal V4 segment. Basilar Artery: Normal without focal stenosis or occlusion. Normal appearance of the proximal superior cerebellar arteries. Right Posterior Cerebral Artery: Normal P1 segment. Normal opacification of the distal FACILITY SUPER[employer]OR segments. Left Posterior Cerebral Artery: The P1 segment is diminutive. origin of the [employer]ACILITY SUPER[employer]OR with robust opacification of the posterior communicating artery. Normal opacification of the distal FACILITY SUPERVISOR segments. Normal opacification of the superior sagittal, straight, transverse, and sigmoid sinuses. CT/CT angio head neck stroke IMPRESSION: 1. Occlusion of the inferior division of the left MCA at its origin 2. Nonopacification of the origin of the right vertebral artery with distal cervical reconstitution. The distal vessel appears congenitally diminutive and is widely patent throughout its intradural course. Impression #[address] Grant Gregory on 08/07/2022 at 7:52 PM
--- NOTE | ~2022-08-07 | XR_ITS ---
EXAMINATION: PORTABLE CHEST 1 VIEW CLINICAL INFORMATION: ams . COMPARISON: 04/22/2018. TECHNIQUE: Portable frontal view of the chest was obtained. FINDINGS: The lungs are hypoexpanded with increased basilar markings on the left more subtle atelectasis although early infiltrate would be difficult to exclude. No significant effusion, edema, or pneumothorax. Cardiac silhouette within normal limits for size for the hypoexpanded technique with calcification in the aorta. No acute bony abnormality XR/XR chest 1V IMPRESSION: Hypoexpanded with increased left basilar markings more likely due to atelectasis. Early infiltrate would be difficult to exclude.
--- NOTE | ~2022-08-07 | CT_ITS ---
EXAMINATION: CT HEAD WITHOUT CONTRAST (STROKE PROTOCOL) CLINICAL INFORMATION: Stroke protocol. Seizure.. Confusion COMPARISON: None TECHNIQUE: Contiguous axial imaging was performed from the skull base to vertex without intravenous administration of contrast. This CT examination was performed using dose optimization techniques as appropriate, variously including the following: *Automated exposure control *Adjustment of mA and/or kV according to patient size (this includes techniques or standardized protocols for targeted exams where dose is matched to indication/reason for exam; i.e. extremities or head) *Use of iterative reconstruction technique DLP: 805 mGy-cm FINDINGS: There is no acute intra-axial, extra-axial bleed, masses or midline shift. There is no acute infarction evolution. The christopher to white matter difference is maintained. The lateral ventricles are symmetrical in size and configuration with mild enlargement. Bone windows reveal no calvarial abnormality. There is no scalp soft tissue abnormality. Bilateral paranasal sinuses and mastoid air cells are well-aerated. CT/CT head for stroke IMPRESSION: No acute intracranial process seen. This critical result was discussed with Dr. Burns by phone at 7:13 PM hours on 08/07/2022. It was ascertained that the content and urgency of the report was understood at the time of direct communication.
--- NOTE | 2022-08-07 18:57 | ED.NEUROSD ---
HPI - Neuro Symptoms/Deficit General Chief Complaint: Stroke Stated Complaint: STROKE ALERT Time Seen by Provider: 08/07/22 18:57 Source: family and EMS Mode of arrival: EMS History of Present Illness HPI Narrative: Patient diabetic , atrial fibrillation on Eliquis came with sudden onset of altered mental status an hour prior to arrival POC was 220 no history of seizures no fall patient confused on arrival . Patient supposed to be on Eliquis which was stopped on 08/01 for nerve decompression L3 which was done on 08/04 patient still not started on Eliquis yet, Symptoms started at 18:00 . blood pressure on arrival was 193/113 with pulse rate of 102 repeat blood pressure 161/95 no focal deficit noticed by EMS but on arrival significant right hemineglect with significant aphasia noticed and clumsiness in the right upper extremity. Related Data Home Medications Medication Instructions Recorded Confirmed Osteo Bi-Flex 04/19/20 01/05/21 apixaban 5 mg tablet (Eliquis) 5 mg PO BID 04/19/20 02/16/22 flaxseed oil 1,000 mg capsule 1,000 mg PO DAILY 04/19/20 02/16/22 gemfibrozil 600 mg tablet 600 mg PO BID 04/19/20 02/16/22 latanoprost 0.005 % eye drops 1 drp ophthalmic (eye) QPM 04/19/20 02/16/22 (Xalatan) omeprazole 40 mg capsule,delayed 40 mg PO DAILY 04/19/20 02/16/22 release hydrochlorothiazide 12.5 mg capsule 12.5 mg PO DAILY 01/05/21 02/16/22 losartan 100 mg tablet 100 mg PO DAILY 01/05/21 02/16/22 metoprolol tartrate 50 mg tablet 50 mg PO BID 01/05/21 02/16/22 glipizide 5 mg tablet, extended 10 mg PO BID 02/17/21 02/16/22 release 24 hr dulaglutide 0.75 mg/0.5 mL mg subcut 02/16/22 02/16/22 subcutaneous pen injector (Trulicity) Allergies Allergy/AdvReac Type Severity Reaction Status Date / Time No Known Allergies Allergy Unverified 04/08/20 14:55 Review of Systems Review of Systems: Yes all other systems are reviewed and are negative [facility] Past Medical History Medical History Chronic atrial fibrillation Diabetes HTN (hypertension) Hyperlipemia Surgical History Hx of cholecystectomy Hx of colonoscopy Family History Family History Father CVA (cerebral vascular accident) Mother CVD (cardiovascular disease) Diabetes Social History Social History Alcohol intake: never Patient Tobacco Use Status: Never used Tobacco Smoked in Last 30 Days: No Use of substances other than those prescribed or required for medical reasons: No Advance Directives: No Advance Directives Information Provided: No Physical Exam Vital Signs: Vital Signs: Last Vital Signs Temp 99.1 F 08/07/22 19:50 Pulse 90 08/07/22 20:34 Resp 16 08/07/22 20:34 BP 194/108 H 08/07/22 20:34 Pulse Ox 99 08/07/22 20:34 O2 Del Method 08/07/22 20:34 BMI result Body Mass Index 28.5 Appearance: Alert. Oriented X1. No acute distress. Eyes: PERRLA, No Nystagmus ENT: Pharynx normal. Oral Mucosa moist Neck: Normal inspection. Neck supple. CVS: Normal heart rate and rhythm. Pulses normal. Respiratory: No respiratory distress. Equal air entry bilateral, no wheezing/rales/rhonchi Abdomen: Soft and nontender. Bowel sounds are present, no mass palpable, no CVA tenderness Skin: Skin warm and dry. Normal skin color. Normal skin turgor. Extremities: No lower extremity edema. No calf tenderness Neuro: Oriented X 1. Right hemineglect, right-sided weakness. Medications Administered Discontinued Medications Generic Name Dose Route Start Last Admin Trade Name Freq PRN Reason Stop Dose Admin Alteplase, Recombinant 81.18 mg 08/07/22 19:52 08/07/22 20:04 Alteplase 100 Mg Vial 0.9 mg/kg (81.18 mg) 08/07/22 19:53 81.18 mg IV Administration ONCE ONE Iohexol 100 ml 08/07/22 19:34 08/07/22 19:35 Iohexol 350 Mg/Ml 100 Ml Infus..Btl IV 08/07/22 19:35 70 ml ONCE ONE Administration Medical Decision Making Medical Decision Making [facility] Narrative: Patient with history of AFib with acute confusion started 1800 with right-sided weakness which got worse after arrival, NIH SS score of 7, tPA started , CTA showed CT/CT angio head? neck stroke IMPRESSION: ? 1.? Occlusion of the inferior division of the left MCA at its origin ? 2.? Nonopacification of the origin of the right vertebral artery with distal cervical reconstitution. The distal vessel appears congenitally diminutive and is widely patent throughout its intradural course. ? Case discussed Dr. Sims neurologist likely be able to do intervention 20;13Case discussed with Dr. Tracy will take the patient for thrombectomy Lab Data [facility] Lab Attestation statement: I reviewed the patient's lab results. 08/07/22 19:22 08/07/22 19:22 Labs: Lab Results 08/07/22 08/07/22 08/07/22 Range/Units 18:58 18:59 19:22 WBC 9.7 (4.8-10.8) X10*3/uL RBC 4.45 L (4.60-5.80) X10*6/uL Hgb 13.0 L (14.0-18.0) g/dl Hct 38.3 L (42.0-52.0) % MCV 86.1 (80.0-98.0) fL MCH 29.2 (27.0-33.0) pg MCHC 33.9 (31.0-36.0) g/dl RDW 13.2 (11.0-16.0) % Plt Count 293 (160-400) X10*3/uL MPV 9.8 (9.4-12.4) fL Immature Gran % (Auto) 0.8 H (0.0-0.4) % Neut % (Auto) 75.6 H (45-73) % Lymph % (Auto) 14.8 L (20-40) % [place] % (Auto) 7.7 (2-11) % Eos % (Auto) 0.8 (0-4) % Baso % (Auto) 0.3 (0-2) % Lymph # (Auto) 1.4 (1.2-4.9) X10*3/uL [place] # (Auto) 0.8 (0.1-1.2) X10*3/uL Eos # (Auto) 0.1 (0.0-0.4) X10*3/uL Baso # (Auto) 0.0 (0.0-0.2) X10*3/uL Abs Immat Gran (auto) 0.08 H (0.00-0.03) X10*3/uL Absolute Neuts (auto) 7.3 (2.0-8.3) x10*3/uL Absolute Nucleated RBC 0.000 (0.0-0.012) X10*3/uL Nucleated RBC % (auto) 0.0 (0.0-0.2) /100WBC PT (10.0-13.1) SEC Whole Blood PT 11.5 (11.1-13.5) sec INR (0.9-1.1) Whole Blood INR 1.0 (0.9-1.1) APTT (26.0-36.4) SEC Sodium (135-145) mmol/L Potassium (3.3-5.1) mmol/L Chloride (96-108) mmol/L Carbon Dioxide (22-29) mmol/L Anion Gap (12-20) BUN (9-16) mg/dL Creatinine (0.5-1.4) mg/dL Estim Creat Clear Calc Estimated GFR POC Glucose 177 H (60-115) mg/dL Random Glucose (60-115) mg/dL Calcium (8.4-10.2) mg/dL Total Bilirubin (0.0-1.0) mg/dL AST (5-37) U/L ALT (0-40) U/L Alkaline Phosphatase (39-117) U/L Troponin I High Sens (<3.5-35.0) ng/L Total Protein (6.5-8.0) g/dL Albumin (3.5-5.0) g/dL COVID-19 (MARGIE) (Negative) COVID-19 Clin Com 08/07/22 08/07/22 08/07/22 Range/Units 19:22 19:22 19:22 WBC (4.8-10.8) X10*3/uL RBC (4.60-5.80) X10*6/uL Hgb (14.0-18.0) g/dl Hct (42.0-52.0) % MCV (80.0-98.0) fL MCH (27.0-33.0) pg MCHC (31.0-36.0) g/dl RDW (11.0-16.0) % Plt Count (160-400) X10*3/uL MPV (9.4-12.4) fL Immature Gran % (Auto) (0.0-0.4) % Neut % (Auto) (45-73) % Lymph % (Auto) (20-40) % [place] % (Auto) (2-11) % Eos % (Auto) (0-4) % Baso % (Auto) (0-2) % Lymph # (Auto) (1.2-4.9) X10*3/uL [place] # (Auto) (0.1-1.2) X10*3/uL Eos # (Auto) (0.0-0.4) X10*3/uL Baso # (Auto) (0.0-0.2) X10*3/uL Abs Immat Gran (auto) (0.00-0.03) X10*3/uL Absolute Neuts (auto) (2.0-8.3) x10*3/uL Absolute Nucleated RBC (0.0-0.012) X10*3/uL Nucleated RBC % (auto) (0.0-0.2) /100WBC PT 11.3 (10.0-13.1) SEC Whole Blood PT (11.1-13.5) sec INR 1.0 (0.9-1.1) Whole Blood INR (0.9-1.1) APTT (26.0-36.4) SEC Sodium 138 (135-145) mmol/L Potassium 3.8 (3.3-5.1) mmol/L Chloride 102 (96-108) mmol/L Carbon Dioxide 23 (22-29) mmol/L Anion Gap 17 (12-20) BUN 16 (9-16) mg/dL Creatinine 0.91 (0.5-1.4) mg/dL Estim Creat Clear Calc 76.8 Estimated GFR > 60 POC Glucose (60-115) mg/dL Random Glucose 184 H (60-115) mg/dL Calcium 9.5 (8.4-10.2) mg/dL Total Bilirubin 1.0 (0.0-1.0) mg/dL AST 16 (5-37) U/L ALT 13 (0-40) U/L Alkaline Phosphatase 62 (39-117) U/L Troponin I High Sens 12.9 (<3.5-35.0) ng/L Total Protein 6.7 (6.5-8.0) g/dL Albumin 4.1 (3.5-5.0) g/dL COVID-19 (MARGIE) (Negative) COVID-19 Clin Com 08/07/22 08/07/22 Range/Units 19:22 19:22 WBC (4.8-10.8) X10*3/uL RBC (4.60-5.80) X10*6/uL Hgb (14.0-18.0) g/dl Hct (42.0-52.0) % MCV (80.0-98.0) fL MCH (27.0-33.0) pg MCHC (31.0-36.0) g/dl RDW (11.0-16.0) % Plt Count (160-400) X10*3/uL MPV (9.4-12.4) fL Immature Gran % (Auto) (0.0-0.4) % Neut % (Auto) (45-73) % Lymph % (Auto) (20-40) % [place] % (Auto) (2-11) % Eos % (Auto) (0-4) % Baso % (Auto) (0-2) % Lymph # (Auto) (1.2-4.9) X10*3/uL [place] # (Auto) (0.1-1.2) X10*3/uL Eos # (Auto) (0.0-0.4) X10*3/uL Baso # (Auto) (0.0-0.2) X10*3/uL Abs Immat Gran (auto) (0.00-0.03) X10*3/uL Absolute Neuts (auto) (2.0-8.3) x10*3/uL Absolute Nucleated RBC (0.0-0.012) X10*3/uL Nucleated RBC % (auto) (0.0-0.2) /100WBC PT (10.0-13.1) SEC Whole Blood PT (11.1-13.5) sec INR (0.9-1.1) Whole Blood INR (0.9-1.1) APTT 30.7 (26.0-36.4) SEC Sodium (135-145) mmol/L Potassium (3.3-5.1) mmol/L Chloride (96-108) mmol/L Carbon Dioxide (22-29) mmol/L Anion Gap (12-20) BUN (9-16) mg/dL Creatinine (0.5-1.4) mg/dL Estim Creat Clear Calc Estimated GFR POC Glucose (60-115) mg/dL Random Glucose (60-115) mg/dL Calcium (8.4-10.2) mg/dL Total Bilirubin (0.0-1.0) mg/dL AST (5-37) U/L ALT (0-40) U/L Alkaline Phosphatase (39-117) U/L Troponin I High Sens (<3.5-35.0) ng/L Total Protein (6.5-8.0) g/dL Albumin (3.5-5.0) g/dL COVID-19 (MARGIE) Negative (Negative) COVID-19 Clin Com See Note Independent Interpretation I performed an independent interpretation of an: EKG Interpretation: Atrial fibrillation ventricular rate 83 beats per minute LVH no acute ST wave changes no acute ischemia Radiology Impression Discussion of test interpretation with radiology: I discussed test interpretation with the radiologist Radiologist Impression: CT/CT angio head? neck stroke IMPRESSION: ? 1.? Occlusion of the inferior division of the left MCA at its origin ? 2.? Nonopacification of the origin of the right vertebral artery with distal cervical reconstitution. The distal vessel appears congenitally diminutive and is widely patent throughout its intradural course. ? NIH Stroke Scale Internal: Initial- Upon Arrival Level of Consciousness: Alert Level of Consciousness Questions: Answers one question correctly Level of Consciousness Commands: Performs one task correctly Best Gaze: Normal Visual: No visual loss Facial Palsy: Normal Motor Arm (Right): Drift Motor Arm (Left): No drift Motor Leg (Right): Drift Motor Leg (Left): No drift Limb Ataxia: Absent Sensory: Normal Best Language: Mild to moderate aphasia Dysarthia: Normal Extinction and Inattention: Profound adam-inattention or extinction to more than one modality Score: 7 Discharge Plan Discharge Clinical Impression: Acute 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 Transfer Details: [facility] Dr. Tracy/Dr. Turner Prescriptions: No Action latanoprost [Xalatan] 0.005 % Drops 1 drp OPHTHALMIC (EYE) QPM omeprazole 40 mg Capsule,Delayed Release(Dr/Ec) 40 mg PO DAILY flaxseed oil 1,000 mg Capsule 1,000 mg PO DAILY gemfibrozil 600 mg Tablet 600 mg PO BID Eliquis 5 mg Tablet 5 mg PO BID Osteo Bi-Flex hydrochlorothiazide 12.5 mg capsule 12.5 mg PO DAILY metoprolol tartrate 50 mg tablet 50 mg PO BID glipizide 5 mg tablet extended release 24hr 10 mg PO BID losartan 100 mg tablet 100 mg PO DAILY Trulicity 0.75 mg/0.5 mL pen injector subcut Interventions: Acute Care Transfer Worksheet (ED) Last Done: 08/07/22 20:53 Discharge Date/Time: 08/07/22 20:54
--- NOTE | 2022-08-07 19:03 | ECG_ITS ---
Test Reason : ?STROKE Blood Pressure : / mmHG Vent. Rate : 083 BPM Atrial Rate : 000 BPM P-R Int : 000 ms QRS Dur : 084 ms QT Int : 348 ms P-R-T Axes : 000 -03 031 degrees QTc Int : 408 ms Atrial fibrillation Minimal voltage criteria for LVH, may be normal variant ( R in aVL ) Abnormal ECG When compared with ECG of 12-MAY-2009 14:07, Atrial fibrillation has replaced Sinus rhythm Criteria for Inferior infarct are no longer Present Referred By: Grant Mayes Electronically Signed By:ROSA MARIA MUNROE MD
[2022-08-07 19:04] LABS: Glucose, Whole Blood 177 mg/dL (60-115)
[2022-08-07 19:08] LABS: Prothrombin Time Whole Bld POC 11.5 sec (11.1-13.5)
[2022-08-07 19:09] VITALS: BP 193/113; BP 200/90; PULSE 102; PULSE 110; RESP 16; TEMP 37; O2SAT 99; BMI 28.5
[2022-08-07 19:27] LABS: MANUAL DIFF FLAG NO
[2022-08-07 19:30] LABS: Basophils Percent Auto 0.3 % (0-2); Eosinophils Absolute Auto 0.1 X10*3/uL (0.0-0.4); Eosinophils Percent Auto 0.8 % (0-4); Hematocrit 38.3 % (42.0-52.0); Imm Gran Abs Auto 0.08 X10*3/uL (0.00-0.03); Imm Gran Pct Auto 0.8 % (0.0-0.4); Lymphocytes Absolute Auto 1.4 X10*3/uL (1.2-4.9); Lymphocytes Percent Auto 14.8 % (20-40); Mean Corpuscular HGB Conc 33.9 g/dl (31.0-36.0); Mean Corpuscular Hemoglobin 29.2 pg (27.0-33.0); Mean Corpuscular Volume 86.1 fL (80.0-98.0); Mean Platelet Volume 9.8 fL (9.4-12.4); Monocytes Absolute Auto 0.8 X10*3/uL (0.1-1.2); Monocytes Percent Auto 7.7 % (2-11); Neutrophils Absolute Auto 7.3 x10*3/uL (2.0-8.3); Neutrophils Percent Auto 75.6 % (45-73); Platelet Count 293 X10*3/uL (160-400); Red Blood Count 4.45 X10*6/uL (4.60-5.80); Red Cell Distribution Width 13.2 % (11.0-16.0); White Blood Count 9.7 X10*3/uL (4.8-10.8)
[2022-08-07] MEDS: iohexoL 350 MG/ML 100 ML INFUS..BTL IV (19:35)
[2022-08-07 19:39] LABS: Prothrombin Time 11.3 SEC (10.0-13.1)
[2022-08-07 19:41] LABS: Partial Thromboplastin Time 30.7 SEC (26.0-36.4)
[2022-08-07 19:44] LABS: Alanine Aminotransferase 13 U/L (0-40); Albumin Level 4.1 g/dL (3.5-5.0); Alkaline Phosphatase 62 U/L (39-117); Anion Gap 17 (12-20); Aspartate Amino Transferase 16 U/L (5-37); Blood Urea Nitrogen 16 mg/dL (9-16); Calcium 9.5 mg/dL (8.4-10.2); Carbon Dioxide 23 mmol/L (22-29); Chloride 102 mmol/L (96-108); Creatinine Clr Calc Pharmacy 76.8; Estimated Glomerular Filt Rate > 60; Glucose Random 184 mg/dL (60-115); Potassium 3.8 mmol/L (3.3-5.1); Sodium 138 mmol/L (135-145); Total Protein 6.7 g/dL (6.5-8.0)
[2022-08-07 19:45] LABS: COVID-19 Test Negative (Negative); IDNOW Serial# BCCEAD1C
[2022-08-07 19:50] VITALS: BP 174/111; PULSE 83; RESP 17; TEMP 37.3; O2SAT 97
[2022-08-07 19:51] LABS: Troponin-I High Sensitivity 12.9 ng/L (<3.5-35.0)
[2022-08-07 20:06] VITALS: BP 190/113; PULSE 98; RESP 16; O2SAT 98
--- NOTE | 2022-08-07 20:11 | MHC.EDTECH ---
[facility]'s Transfer Line called at 2001 per for Neuro,gave patient demographics awaiting a call back. [facility] called at 2006 speaking with ay this time.
--- NOTE | 2022-08-07 20:13 | MHC.EDTECH ---
At 2011 accepted patient to ER at [facility]. Herminio called for a ALS stat at 2013 per christopher Monroy within 15mins.Rn aware
--- NOTE | 2022-08-07 20:23 | MHC.EDTECH ---
[facility] called at 2021 to make a change to the Accepting Doctor, is the Accepting, aware.
--- NOTE | 2022-08-07 20:30 | MHC.EDTECH ---
EMS arrived at 2024 for transport.Rn at bedside
[2022-08-07 20:34] VITALS: BP 194/108; PULSE 90; RESP 16; O2SAT 99
--- NOTE | 2022-08-07 20:42 | PC.NURSE ---
Met patient in CT scan for CTA for stroke alert. Pt. with right sided weakness, completed CT scan and asking to urinate. Was able to urinate with the urinal. Pt. back to room. Pt's at bedside. TPA started per protocol. Pt. experiencing confusion and word salad. Pt. is alert, however experiencing aphasia and mixes up words and letters. Pt. urinated in urinal with assistance again. reports patient on flomax. Pt. grasp is weakened on the right side and unable to lift arms.
--- NOTE | 2022-08-07 20:52 | PC.NURSE ---
Pt. loaded with EMS for transport to [facility]. TPA currently running during transfer. Nurse to nurse report called to ER nurse at [facility].
--- NOTE | 2022-08-08 09:38 | MHC.STROKE ---
08/07/22 1850 EMS PRE-NOTIFIED STROKE ALERT . ARRIVED AT [facility], EXAMINED BY PROVIDER NIHSS = 7, RIGHT WEAKNESS AND APHASIA, DIRECT TO CT ON STRETCHER, NO BLEED, CTA H/N + LVO. ALTEPLASE 81.18MG ORDERED AT 1951, BOLUS AT 2003. CHECKING BP INITIALLY ELEVATED SBP 193, IT DID DECREASE TO SBP 177 WITHOUT ANTIHYPERTENSIVES, CLARIFYING IF PATIENT ON ELIQUIS IT WAS STOPPED ON 08/01/22. DELAY IN TPA-ALTEPLASE > 30, 45, 60 MINUTES BASED ON SAFETY AND CLARIFICATION OF ELIQUIS USE AND MONITORING BP. DOOR TO TPA = 68 MINUTES. CASE WAS DISCUSSED WITH [facility] AND TRANSFERRED AT 2053. DIDO = 120 MIN. DELAY DUE TO GETTING ACCEPTANCE FROM TERTIARY FACILITY. SEE PROVIDER NOTES, DR. LOCKWOOD ALSO CONSULTED. NPO ENTIRE STAY, EXCLUDED FROM DYSPHAGIA SCREEN.
== END 2022-08-07 20:54 | disposition short-term general hospital (02) ==
PROVIDERS: Emergency Provider Internal Medicine
DX: I63.312 Cerebral infarction due to thrombosis of left middle cerebral artery (principal); R29.707 NIHSS score 7; R47.01 Aphasia; G81.91 Hemiplegia, unspecified affecting right dominant side; Z98.890 Other specified postprocedural states; Z20.822 Contact with and (suspected) exposure to COVID-19; E11.9 Type 2 diabetes mellitus without complications; I10 Essential (primary) hypertension; E78.5 Hyperlipidemia, unspecified; I48.20 Chronic atrial fibrillation, unspecified; Z79.85 Long-term (current) use of injectable non-insulin antidiabetic drugs
CPT/HCPCS: 36415; 70450; 70496; 70498; 71045; 80053; 82947; 84484; 85025; 85610; 85730; 87635; 93005; 99285; J2997; Q9967

== ENCOUNTER 2024-05-09 06:15 | Outpatient (REF) | payer MEDICARE, SELFPAY ==
[2024-05-09 06:17] LABS: MANUAL DIFF FLAG NO
[2024-05-09 06:37] LABS: Basophils Percent Auto 0.2 % (0-2); Eosinophils Absolute Auto 0.2 X10*3/uL (0.0-0.4); Eosinophils Percent Auto 2.5 % (0-4); Hematocrit 33.9 % (42.0-52.0); Hemoglobin 11.2 g/dl (14.0-18.0); Imm Gran Abs Auto 0.07 X10*3/uL (0.00-0.03); Imm Gran Pct Auto 0.7 % (0.0-0.4); Lymphocytes Absolute Auto 1.5 X10*3/uL (1.2-4.9); Lymphocytes Percent Auto 16.2 % (20-40); Mean Corpuscular Hemoglobin 27.3 pg (27.0-33.0); Mean Corpuscular Volume 82.5 fL (80.0-98.0); Monocytes Absolute Auto 0.5 X10*3/uL (0.1-1.2); Monocytes Percent Auto 5.8 % (2-11); Neutrophils Percent Auto 74.6 % (45-73); Platelet Count 200 X10*3/uL (160-400); Red Blood Count 4.11 X10*6/uL (4.60-5.80); Red Cell Distribution Width 13.7 % (11.0-16.0); White Blood Count 9.4 X10*3/uL (4.8-10.8)
[2024-05-09 06:59] LABS: Alanine Aminotransferase 14 U/L (0-40); Albumin Level 3.6 g/dL (3.5-5.0); Alkaline Phosphatase 96 U/L (39-117); Anion Gap 12 (12-20); Aspartate Amino Transferase 12 U/L (5-37); Bilirubin Total 0.8 mg/dL (0.0-1.0); Blood Urea Nitrogen 16 mg/dL (9-16); Calcium 9.3 mg/dL (8.4-10.2); Carbon Dioxide 27 mmol/L (22-29); Chloride 108 mmol/L (96-108); Estimated Glomerular Filt Rate > 60; Glucose Fasting 153 mg/dL (60-99); Potassium 3.5 mmol/L (3.3-5.1); Sodium 143 mmol/L (135-145); Total Protein 6.2 g/dL (6.5-8.0)
[2024-05-09 07:13] LABS: Thyroid Stimulating Hormone 1.63 uIU/mL (0.32-4.0)
[2024-05-09 07:30] LABS: Estimated Average Glucose 171 mg/dL; Hemoglobin A1C 178.0343 umol/L; Hemoglobin A1c % 7.6 % (<6.0); Total Hemoglobin (HGBA1C) 2971.9378 umol/L
[2024-05-12 01:13] LABS: TS Negative Control Passed; TS Panel A 0; TS Panel B 0; TS Positive Control Passed; TSpotTB Negative (Negative)
== END 2024-05-09 06:16 | disposition home or self-care (01) ==
LOC: HO.HSH2E 06:15
PROVIDERS: Visit Provider Internal Medicine
DX: Z11.1 Encounter for screening for respiratory tuberculosis (principal); E11.9 Type 2 diabetes mellitus without complications; I10 Essential (primary) hypertension; G81.91 Hemiplegia, unspecified affecting right dominant side
CPT/HCPCS: 36415; 80053; 83036; 84443; 85025; 86481

== ENCOUNTER 2024-06-04 06:02 | Outpatient (REF) | payer MEDICARE, SELFPAY ==
[2024-06-04 06:05] LABS: MANUAL DIFF FLAG NO
[2024-06-04 06:24] LABS: Anion Gap 15 (12-20); Blood Urea Nitrogen 15 mg/dL (9-16); Calcium 9.1 mg/dL (8.4-10.2); Carbon Dioxide 23 mmol/L (22-29); Chloride 103 mmol/L (96-108); Estimated Glomerular Filt Rate > 60; Glucose Random 175 mg/dL (60-115); Potassium 3.9 mmol/L (3.3-5.1); Sodium 137 mmol/L (135-145)
[2024-06-04 06:27] LABS: Basophils Percent Auto 0.3 % (0-2); Eosinophils Absolute Auto 0.1 X10*3/uL (0.0-0.4); Eosinophils Percent Auto 0.9 % (0-4); Hematocrit 32.2 % (42.0-52.0); Hemoglobin 10.5 g/dl (14.0-18.0); Imm Gran Abs Auto 0.11 X10*3/uL (0.00-0.03); Lymphocytes Absolute Auto 1.3 X10*3/uL (1.2-4.9); Lymphocytes Percent Auto 11.4 % (20-40); Mean Corpuscular HGB Conc 32.6 g/dl (31.0-36.0); Mean Corpuscular Hemoglobin 27.1 pg (27.0-33.0); Mean Platelet Volume 9.8 fL (9.4-12.4); Monocytes Absolute Auto 0.9 X10*3/uL (0.1-1.2); Monocytes Percent Auto 8.4 % (2-11); Neutrophils Absolute Auto 8.6 x10*3/uL (2.0-8.3); Platelet Count 169 X10*3/uL (160-400); Red Blood Count 3.88 X10*6/uL (4.60-5.80); Red Cell Distribution Width 14.7 % (11.0-16.0)
== END 2024-06-04 06:03 | disposition home or self-care (01) ==
LOC: HO.HSH2E 06:02
PROVIDERS: Visit Provider Nurse Practitioner
DX: E11.9 Type 2 diabetes mellitus without complications (principal); I10 Essential (primary) hypertension
CPT/HCPCS: 36415; 80048; 85025

== ENCOUNTER 2024-06-05 06:10 | Outpatient (REF) | payer MEDICARE, SELFPAY ==
[2024-06-05 06:57] LABS: Ferritin 209 ng/mL (20-250)
[2024-06-05 07:03] LABS: Vitamin B12 222 pg/mL (200-900)
== END 2024-06-05 06:11 | disposition home or self-care (01) ==
LOC: HO.HSH2E 06:10
PROVIDERS: Visit Provider Internal Medicine Endocrinology, Diabetes & Metabolism
DX: D64.9 Anemia, unspecified (principal)
CPT/HCPCS: 36415; 82607; 82728

== ENCOUNTER 2025-01-28 05:52 | Outpatient (REF) | payer MEDICARE, SELFPAY ==
[2025-01-28 07:09] LABS: Hemoglobin A1C 201.6658 umol/L; Total Hemoglobin (HGBA1C) 3133.9832 umol/L
== END 2025-01-28 05:53 | disposition home or self-care (01) ==
LOC: HO.HSH2E 05:52
PROVIDERS: Visit Provider Internal Medicine Endocrinology, Diabetes & Metabolism
DX: E11.9 Type 2 diabetes mellitus without complications (principal); Z79.84 Long term (current) use of oral hypoglycemic drugs
CPT/HCPCS: 36415; 83036

== ENCOUNTER 2025-05-19 06:17 | Outpatient (REF) | payer MEDICARE, SELFPAY ==
--- OUTSIDE RECORDS SUMMARY | 2025-05-19 06:19 | XMS_ITS | Patient Health Record ---
Author Organization [facility] Address [address] [place] [address] Care Team Providers Care Matching Machine Operator Name Role Phone Keli (RETIRED) Nito ANTHONY Primary Care Provide Mesfin Muir Jr Unavailable Allergies Allergen (clinical drug ingredient) Drug/Non Drug Allergy documented on EMR Reaction Allergy Type Onset Date Status Spicy Seasonings (uncoded) Unknown Allergy Active Reason For Referral No Information Medications Medication SIG (Take, Route, Frequency, Duration) Notes Start Date End Date Status Gemfibrozil 600 MG 1 tablet Orally Twic e a day Active hydroCHLOROthiazide 12.5 MG 1 capsule Or ally Once a day Active Eliquis 5 MG as directed Orally Active metFORMIN HCl 500 MG 1 tablet with meals Orally Twice a day Active Omeprazole 40 MG 1 capsule 30 minutes before morning meal Orally Once a day; Duration: 30 day(s) Active Aspirin 81 MG 1 tablet Orally Once a day Active glipiZIDE XL 5 MG 1 tablet with food Orally Once a day; Duration: 30 day(s) Active Losartan Potassium 100 MG 1 tablet Orall y Once a day Active Metoprolol & Diet Manage Pro d 50 MG Orally Active MiraLax (colon prep) 8.3 oun ce ((238) grams mixed with Gatorade or Crystal Light orally begin at 5:00 p.m. the day before the procedure; Duration: 1 day 03/24/2020 Active Flaxseed Oil 1000 MG Orally Active Osteo Bi-Flex Adv Double St Orally Active Multivitamins Orally Active Xalatan 0.005 % 1 drop into affected eye in the evening Ophthalmic Once a day Active Immunizations Vaccine Route Administration Date Status Comme nts Influenza Unknown 04/23/2019 Administered Problems Problem Type SNOMED Code ICD Code Onset Dates Problem Status W/U Status Risk Notes Problem Colon cancer screening (006022255) Colon cancer screening (Z12.11) Active confirmed Problem Gastroesophageal reflux disease without esophagitis (826058573) Gastroesophageal reflux disease without esophagitis (K21.9) Active confirmed Problem Long-term current use of drug therapy (068943184) History of ongoing treatment with high-risk medication (Z79.899) Active confirmed Plan Of Treatment Future Test Test Name Order Date COLONOSCOPY 11/26/2014 COLONOSCOPY 03/24/2020 Insurance Providers Payer Name Payer Address Payer Phone Subscriber Number Group Number Insured Name Patient Relationship to Insured Coverage Start Date Coverage End Date [facility] [address] [place] [phone] [id number] HO HASSAN Self - patient is the insured Medical (General) History Medical History History ICD Code colonoscopy 02/26/15, one tubular adenoma, five-year followup recommended. hypertension gerd Atrial fibrillation dislocated left pinky finger diabetes mellitus Surgical History Surgery Date(Month/Year) cholecystectomy
[2025-05-19 06:39] LABS: Anion Gap 11 (12-20); Blood Urea Nitrogen 17 mg/dL (9-16); Calcium 8.4 mg/dL (8.4-10.2); Carbon Dioxide 19 mmol/L (22-29); Chloride 115 mmol/L (96-108); Estimated Glomerular Filt Rate > 60; Potassium 4.3 mmol/L (3.3-5.1); Sodium 141 mmol/L (135-145)
== END 2025-05-19 06:18 | disposition home or self-care (01) ==
LOC: HO.HSH2E 06:17
PROVIDERS: Visit Provider Internal Medicine Endocrinology, Diabetes & Metabolism
DX: I10 Essential (primary) hypertension (principal); E11.9 Type 2 diabetes mellitus without complications
CPT/HCPCS: 36415; 80048

== ENCOUNTER 2025-05-27 05:46 | Outpatient (REF) | payer MEDICARE, SELFPAY ==
--- OUTSIDE RECORDS SUMMARY | 2025-05-27 05:49 | XMS_ITS | Patient Health Record ---
Author Organization [facility] Address [address] [place] [address] Care Team Providers Care Event Crew Technician Name Role Phone Keli (RETIRED) Nito ANTHONY [...] Status Risk Notes Problem Colon cancer screening (900926831) Colon cancer screening (Z12.11) Active confirmed Problem Gastroesophageal reflux disease without esophagitis (367141166) Gastroesophageal reflux disease without esophagitis (K21.9) Active confirmed Problem Long-term current use of drug therapy (134479758) History of ongoing treatment with high-risk medication (Z79.899) Active confirmed Plan Of Treatment Future Test Test Name Order Date COLONOSCOPY 11/26/2014 COLONOSCOPY 03/24/2020 Insurance Providers Payer Name Payer Address Payer Phone Subscriber Number Group Number Insured Name Patient Relationship to Insured Coverage Start Date Coverage End Date [facility] [address] [place] [phone] [id number] HO HASSAN Self - patient is the insured Medical (General) History Medical History History ICD Code colonoscopy 02/26/15, one tubular adenoma, five-year followup recommended. hypertension gerd Atrial fibrillation dislocated left pinky finger diabetes mellitus Surgical History Surgery Date(Month/Year) cholecystectomy
[2025-05-27 06:34] LABS: Anion Gap 13 (12-20); Blood Urea Nitrogen 20 mg/dL (9-16); Calcium 8.5 mg/dL (8.4-10.2); Carbon Dioxide 21 mmol/L (22-29); Chloride 113 mmol/L (96-108); Estimated Glomerular Filt Rate > 60; Potassium 3.7 mmol/L (3.3-5.1); Sodium 143 mmol/L (135-145)
[2025-05-27 07:13] LABS: Total Hemoglobin (HGBA1C) 3103.2399 umol/L
== END 2025-05-27 05:47 | disposition home or self-care (01) ==
LOC: HO.HSH2E 05:46
PROVIDERS: Visit Provider Internal Medicine Endocrinology, Diabetes & Metabolism
DX: E11.9 Type 2 diabetes mellitus without complications (principal)
CPT/HCPCS: 36415; 80048; 83036

== ENCOUNTER 2025-06-04 05:49 | Outpatient (REF) | payer MEDICARE, SELFPAY ==
--- OUTSIDE RECORDS SUMMARY | 2025-06-04 05:52 | XMS_ITS | Patient Health Record ---
Author Organization [facility] Address [address] [place] [address] Care Team Providers Care Postmaster Name Role Phone Keli (RETIRED) Nito ANTHONY [...] Status Risk Notes Problem Colon cancer screening (438305195) Colon cancer screening (Z12.11) Active confirmed Problem Gastroesophageal reflux disease without esophagitis (352197614) Gastroesophageal reflux disease without esophagitis (K21.9) Active confirmed Problem Long-term current use of drug therapy (278787032) History of ongoing treatment with high-risk medication (Z79.899) Active confirmed Plan Of Treatment Future Test Test Name Order Date COLONOSCOPY 11/26/2014 COLONOSCOPY 03/24/2020 Insurance Providers Payer Name Payer Address Payer Phone Subscriber Number Group Number Insured Name Patient Relationship to Insured Coverage Start Date Coverage End Date [facility] [address] [place] [phone] [id number] HO HASSAN Self - patient is the insured Medical (General) History Medical History History ICD Code colonoscopy 02/26/15, one tubular adenoma, five-year followup recommended. hypertension gerd Atrial fibrillation dislocated left pinky finger diabetes mellitus Surgical History Surgery Date(Month/Year) cholecystectomy
[2025-06-04 06:29] LABS: Anion Gap 13 (12-20); Blood Urea Nitrogen 19 mg/dL (9-16); Calcium 8.5 mg/dL (8.4-10.2); Carbon Dioxide 19 mmol/L (22-29); Chloride 114 mmol/L (96-108); Estimated Glomerular Filt Rate > 60; Potassium 3.6 mmol/L (3.3-5.1); Sodium 142 mmol/L (135-145)
== END 2025-06-04 05:50 | disposition home or self-care (01) ==
LOC: HO.HSH2E 05:49
PROVIDERS: Visit Provider Internal Medicine Endocrinology, Diabetes & Metabolism
DX: E11.9 Type 2 diabetes mellitus without complications (principal)
CPT/HCPCS: 36415; 80048